=== PATIENT | female | born 1955 | race Caucasian/White ===

== ENCOUNTER 2025-02-12 17:05 | Emergency (ER) | payer MEDICARE, SELFPAY ==
[2025-02-12 17:28] VITALS: BP 179/99; PULSE 79; RESP 18; TEMP 36.8; O2SAT 98; BMI 30.9
--- NOTE | 2025-02-12 17:31 | CRLHL7_ITS ---
For Patients: As a result of the Century Cures Act, medical imaging exams and procedure reports are released immediately into your electronic medical record. You may view this report before your referring provider. If you have questions, please contact your health care provider. INDICATION: Foot Injury TECHNIQUE: Foot radiograph 3 views left COMPARISON: None FINDINGS: Bone: There is an undisplaced transverse intra-articular fracture present at the base of the 5th metatarsal. 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 No significant ankle effusion is seen. Soft tissue: Unremarkable. No radiopaque foreign bodies are seen. IMPRESSION: 1. There is an undisplaced transverse intra-articular fracture present at the base of the 5th metatarsal. Dictated by Gary Munoz MD @ 02/12/2025 6:08:42 PM Dictated by: Gary Munoz MD @ 02/12/2025 18:08:44 (Electronically Signed)
--- NOTE | 2025-02-12 18:23 | ED_ITS ---
HPI - General Adult General Chief complaint: Extremity Pain/Injury, Lower Stated complaint: L foot injury Time Seen by Provider: 02/12/25 18:19 Source: patient Mode of arrival: ambulatory Limitations: no limitations History of Present Illness HPI narrative: 69-year-old female presenting today with foot pain. She states that she was walking around with wedge heels when she lost her footing and her foot turned. She felt immediate pain over the lateral foot. Did not hit her head or lose consciousness. Denies other injury. Related Data Home Medications ?Medication ?Instructions ?Recorded ?Confirmed levothyroxine .ROUTE 02/12/25 losartan .ROUTE 02/12/25 pravastatin 20 mg tablet 20 mg PO QHS 02/12/25 Allergies Allergy/AdvReac Type Severity Reaction Status Date / Time prochlorperazine (From Allergy Verified 02/12/25 17:28 Compazine) trimethobenzamide (From Allergy Verified 02/12/25 17:28 Tigan) Review of Systems Status of ROS: Reports: 6 or more systems reviewed and unremarkable except as noted in History and below Exam Narrative: Exam Narrative: Well-nourished well-developed patient in no acute distress. Alert and oriented. Answers questions appropriately. Mood and affect are appropriate. Thoughts are goal oriented and rational. No tangential or magical thinking noted. P atient speaks in full sentences without needing to catch her breath. HEENT: Normocephalic atraumatic. Pupils are equally round reactive to light. Extraocular muscles are intact. Conjunctivae are moist without any icterus noted. Extremities: Bilateral lower extremities are without edema. Normal DP and PT pulses. Patient has tenderness and ecchymosis over the lateral left foot. Remainder of the foot exam is normal. Skin: Well perfused. Const: Vital Signs, click to edit/add: Vital Signs - 24 hr 02/12/25 17:28 Temperature 98.3 F Pulse Rate [Right Pulse Oximeter] 79 Respiratory Rate 18 Blood Pressure [Ri ght Upper Arm] 179/99 H Pulse Oximetry 98 Oxygen Delivery Me thod Room Air Course Course ED Course: X-ray of the foot, read by me, shows a fracture at the base of the 5th meta tarsal. Vital Signs Vital signs: Initial Vital Signs Temperature 98.3 F 02/12/25 17:28 Temperature Source Temporal Artery Scan 02/12/25 17:28 Pulse Rate 79 02/12/25 17:28 Respiratory Rate 18 02/12/25 17:28 Blood Pressure 179/99 H 02/12/25 17:28 Blood Pressure Mean 125 H 02/12/25 17:28 Blood Pressure Position Sitting 02/12/25 17:28 Pulse Oximetry 98 02/12/25 17:28 Oxygen Delivery Method Room Air 02/12/25 17:28 Vital Signs Temperature 98.3 F 02/12/25 17:28 Pulse Rate 79 02/12/25 17:28 Respiratory Rate 18 02/12/25 17:28 Blood Pressure 179/99 H 02/12/25 17:28 Pulse Oximetry 98 02/12/25 17:28 Oxygen Delivery Method Room Air 02/12/25 17:28 Temperature 98.3 F 02/12/25 17:28 Pulse Rate 79 02/12/25 17:28 Respiratory Rate 18 02/12/25 17:28 Blood Pressure 179/99 H 02/12/25 17:28 Pulse Oximetry 98 02/12/25 17:28 Oxygen Delivery Method Room Air 02/12/25 17:28 Medical Decision Making MDM Narrative Medical decision making narrative: 69-year-old female with a fracture at the base of the 5th metatarsal. Patient watches [employer] 3 times a day and has to be on her feet quite a bit. Therefore we decided to go ahead and put her in a cam boot. She will follow up with primary care Orthopedics this coming week. Has been using ibuprofen for pain in that has been working well. Imaging Data Foot x-ray: Attestation: I have reviewed the pertinent imaging results. Radiologist's impression: TECHNIQUE: Foot radiograph 3 views left COMPARISON: None FINDINGS: Bone: There is an undisplaced transverse intra-articular fracture present at the base of the 5th metatarsal. 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 No significant ankle effusion is seen. Soft tissue: Unremarkable. No radiopaque foreign bodies are seen. IMPRESSION: 1. There is an undisplaced transverse intra-articular fracture present at the base of the 5th metatarsal. Discharge Plan Discharge Clinical Impression: Fracture of base of fifth metatarsal bone Patient Disposition: Home, Self-Care Condition: Stable Additional Instructions: Use boot daily for comfort. Can take off at night to sleep, however, if you get up in the middle of the night he should put the boot back on. You should follow-up with your primary care provider or Orthopedics at the end of this coming week for re-evaluation. Prescriptions: No Action levothyroxine .ROUTE losartan .ROUTE pravastatin 20 mg tablet 20 mg PO QHS Stand Alone Forms: [employer] Info Instructions
--- OUTSIDE RECORDS SUMMARY | 2025-02-12 18:48 | XMS_ITS | Clinical Summary ---
Author Organization [place] Address [address] [place] [address] Care Team Providers Care Hvac Sales Representative Name Role Phone Ana Lilia Atkinson MD Unavailable [phone] Tae Woodson MD Primary Care Provider Tae Woodson MD Unavailable Allergies Active Allergy Reactions Criticality Noted Date Comments Prochlorperazine Other (See Comments) 0 Restless legs Trimethobenzamide 09/13/2019 Medications calcium carbonate 600 MG tablet Take 1 tablet (600 mg) by mouth daily Active Vitamin D, Cholecalciferol, 25 MCG (1000 UT) CAPS Take 1 capsule by mouth daily Active losartan (COZAAR) 25 MG tabletIndication s:Benign essential hypertension TAKE 1 TABLET BY MOUTH EVERY DAY 90 tablet 1 10/27/19 25 Active pravastatin (PRAVACHOL) 20 MG tabletIndication s:Hyperlipidemia LDL goal <100 TAKE 1 TABLET BY MOUTH EVERY DAY 90 tablet 02/07/20 25 Active levothyroxine (SYNTHROID/LEVOT HROID) 125 MCG tabletIndication s:Hypothyroidism , unspecified type TAKE 1/2 TABLET SIX DAYS WEEKLY, 1 TABLET ONE DAY EACH WEEK, FOR A TOTAL WEEKLY DOSE OF 4 TABS/WEEK. 48 tablet 02/07/20 25 Active pravastatin (PRAVACHOL) 20 MG tabletIndication s:Hyperlipidemia LDL goal <100 TAKE 1 TABLET BY MOUTH EVERY DAY 90 tablet 1 08/15/20 24 025 Discontinued levothyroxine (SYNTHROID/LEVOT HROID) 125 MCG tabletIndication s:Hypothyroidism , unspecified type TAKE 1/2 TABLET SIX DAYS WEEKLY, 1 TABLET ONE DAY EACH WEEK, FOR A TOTAL WEEKLY DOSE OF 4 TABS/WEEK. 48 tablet 11/02/19 25 025 Discontinued Active Problems Problem Noted Date Diagnosed Date External hemorrhoids 02/26/2022 Assessment & Plan (02/26/2022 6:39 AM CDT): Patient with painful anal lump about 1 week. This has been bleeding. Pain is reduced bleeding is reduced. Exam shows spontaneously ruptured hemorrhoid. Discussed natural history, care with OTC products Diabetes mellitus, type 2 12/26/2021 Overview (03/29/2024): Well controlled with lifestyle changes, lost 40 pounds since diagnosis. On statin therapy. Pancreas cyst 12/26/2021 Overview (03/29/2024): Following with GI Repeat MRI/MRCP obtained in 03/2024 for monitoring. IMPRESSION: 1. Stable multiple cystic pancreas lesions. Dominant cyst is 2 cm at the pancreas tail. 2. Stable but technically indeterminate multiple nodules in the spleen. Hyperlipidemia LDL goal <100 12/26/2021 Overview (03/31/2024): On pravastatin. Benign essential hypertension 12/26/2021 Overview (02/02/2023): On losartan Hypothyroidism, unspecified type 09/13/2019 Overview (02/02/2023): Follows with endocrinology. History of partial thyroidectomy for goiter many years back. History of large goiter, surgically treated with left hemithyroidectomy. On thyroid hormone replacement since approximately 1992. Encounters Date Type Department Care Team Description 02/05/[address] [facility] [address] [place] [address] Tae Woodson MD Medication Refill 02/04/[address] [address] Tae Woodson MD Medication Refill 12/19/2024 MyC Medical Advice M [facility] [address] [place] [address] Preeti Greer, RONALD from Last 3 Months Immunizations Immunization Administration Dates Next Due Influenza Vaccine 65+ (Fluzone HD) 05/04/2023, Influenza Vaccine >6 months,quad, PF 05/17/2018, 05/06/2016 Pneumococcal 20 valent Conjugate (Prevnar 20) TDAP Vaccine (Adacel) 05/29/2012 TDAP Vaccine (Boostrix) 12/19/2022 Zoster recombinant adjuvanted (Shingrix) 023,06/27/2022 Family History Medical History Relation Comments Cerebrovascular Disease Brother Prostate Cancer Brother Other - See Comments Cousin pancreatic and prostate cancer ALS Father Cerebrovascular Disease Maternal Grandmother Hypertension Mother Stomach Cancer Mother Breast Cancer No family hx of Colon Cancer No family hx of Ovarian Cancer No family hx of Relation Status Comments Brother Alive Cousin (Age 69) pancreatic can cer Father Maternal Grandmother Mother Social History Tobacco Use Types Packs/Day Years Used Date Smoking Tobacco: Never Smokeless Tobacco: Never Tobacco Cessation:Counseling Given: Not Answered Alcohol Use Standard Drinks/Week Comments Never 0 (1 standard drink = 0.6 oz pur e alcohol) Social Connection and Isolat ion Panel [NHANES] Answer Date Recorded Frequency of Communication w ith Friends and Family Not on file 03/29/2024 How often do you get togethe r with friends or relatives? More than three times a week 03/29/2024 Attends Protestant Services Not on file 03/29 Active Member of Clubs or Organizations Not on f ile 03/29/2024 Attends Club or Organization Meetings Not on kervin e 03/29/2024 Marital Status Not on file 03/29/2024 AUDIT-C Answer Date Recorded Q1: How often do you have a drink containing alcohol? Never 12/19/2021 Q2: How many drinks containi ng alcohol do you have on a typical day when you are drinking? Patient does not drink Q3: How often do you have si x or more drinks on one occasion? Never 12/19/2021 PHQ-2 Answer Date Recorded PHQ-2 Score 0 03/29/2024 [facility] [place] of Occupat ional [facility] - Occupational Stress Questionnaire Answer Date Recorded Do you feel stress - tense, restless, nervous, or anxious, or unable to sleep at night because your mind is troubled all the time - these days? Not at all 03/29/2024 Exercise Vital Sign Answer Date Recorde d On average, how many days pe r week do you engage in moderate to strenuous exercise (like a brisk walk)? 1 day Minutes of Exercise per Session Not on file 03/29/2024 Adolescent Education Answer Date Record ed Getting School Help Needed Not on file 05/09 Food Insecurity Answer Date Recorded Within the past 12 months, d id you worry that your food would run out before you got money to buy more? No 03/29/2024 Within the past 12 months, d id the food you bought just not last and you didn t have money to get more? No 03/29/2024 Housing Stability Answer Date Recorded Do you have housing? (Aletheain g is defined as stable permanent housing and does not include staying outside in a car, in a tent, in an abandoned building, in an overnight retirement, or couch-surfing.) Yes 03/29/2024 Are you worried about losing your housing? No 03/29/2024 Financial Resource Strain Answer Date R ecorded Within the past 12 months, h ave you or your family members you live with been unable to get utilities (heat, electricity) when it was really needed? No 03/29/2024 Transportation Needs Answer Date Record ed Within the past 12 months, h as lack of transportation kept you from medical appointments, getting your medicines, non-medical meetings or appointments, work, or from getting things that you need? No 03/29/2024 Interpersonal Safety Answer Date Record ed Do you feel physically and e motionally safe where you currently live? Yes 03/29/2024 Within the past 12 months, h ave you been hit, slapped, kicked or otherwise physically hurt by someone? No 03/29/2024 Within the past 12 months, h ave you been humiliated or emotionally abused in other ways by your partner or ex-partner? 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 Gender Identity Not on file Sexual Orientation Not on file Last Filed Vital Signs Vital Sign Reading Time Taken Comments Blood Pressure 118/74 03/29/2024 7:20 AM CDT Pulse 68 03/29/2024 7:20 AM CDT Temperature 36.5 C (97.7 F) 03/29/2024 7:20 AM CDT Respiratory Rate 15 03/29/2024 7:20 AM CDT Oxygen Saturation 100% 03/29/2024 7:20 AM CDT Inhaled Oxygen Concentration - - Weight 70.3 kg (155 lb) 03/29/2024 7:20 AM CDT Height 157.5 cm (5' 2) 03/29/2024 7:20 AM CDT Body Mass Index 28.35 03/29/2024 7:20 AM CDT Plan of Treatment Health Maintenance Due Date Last Done Comments CT COLONOGRAPHY 1955 FIT 1955 FLEX SIG 1955 sDNA (Cologuard) 1955 ANNUAL REVIEW OF HM ORDERS 12/19/2022 12/19/2021 COVID-19 VACCINE ( season) 2024 PHQ-2 (once per calendar year) 2024 03/29/2024, 02/02/2023, 09/04/2022, Additional history exists A1C 09/29/2024 03/29/2024, 07/17, 02/02/2023, Additional history exists BMP 03/29/2025 03/29/2024, 01/15, 03/31/2022, Additional history exists DIABETIC FOOT EXAM 03/29/2025 03/29/2024, 0 03/29/2024, 02/02/2023, Additional history exists FALL RISK ASSESSMENT 03/29/2025 03/29/2024, 02/02/2023, 12/19/2021, Additional history exists LIPID 03/29/2025 03/29/2024, 12/15, 12/19/2021, Additional history exists MEDICARE ANNUAL WELLNESS VISIT 03/29/2025 03/29/2024, 02/02/2023, 12/19/2021 MICROALBUMIN 03/29/2025 03/29/2024, 12/15, 12/26/2021 TSH W/FREE T4 REFLEX 03/29/2025 03/29/2024, 08/04/2023, 08/04/2023, Additional history exists INFLUENZA VACCINE (Season Ended) 2025 05/04/2023, 07/08/2022, 05/17/2018, Additional history exists EYE EXAM 05/03/2025 05/03/2024, 04/17, 05/02/2023, Additional history exists COLONOSCOPY 07/17/2025 07/17/2015 COLORECTAL CANCER SCREENING 07/17/2025 MAMMO SCREENING 01/21/2026 01/22/2024, 12/16, 08/09/2018, Additional history exists ADVANCE CARE PLANNING 03/29/2029 03/29/2024 , 02/02/2023, 09/04/2022, Additional history exists RSV VACCINE (1 - 1-dose 75+ series) 2030 DTAP/TDAP/TD VACCINE (3 - Td or Tdap) 12/19/2032 12/19/2022, 05/29/2012 DEXA 02/24/2037 02/24/2022 HEPATITIS C SCREENING Completed 07/12/2018, 018 ZOSTER VACCINE Completed 10/17/2022, 06/27/2022 PNEUMOCOCCAL VACCINE 50+ YEARS Completed 12/19/2022 HPV VACCINE Aged Out No longer eligi ble based on patient's age to complete this topic MENINGITIS VACCINE Aged Out No longer eligible based on patient's age to complete this topic Procedures Procedure Name Priority Date/Time Associated Diagnosis Comments EYE EXAM - HIM SCAN 05/03/2024 1 2:00 AM CDT ALBUMIN RANDOM URINE QUANTITATIVE Routine 03/29/2024 8:02 AM CDT Type 2 diabetes mellitus without complication, without long-term current use of insulin (H) TSH WITH FREE T4 REFLEX Routine 03/29/2024 7:59 AM CDT Hypothyroidism, unspecified type LIPID REFLEX TO DIRECT LDL PANEL Routine 03/29/2024 7:59 AM CDT Type 2 diabetes mellitus without complication, without long-term current use of insulin (H) BASIC METABOLIC PANEL Routine 03/29/2024 7:59 AM CDT Benign essential hypertension HEMOGLOBIN A1C Routine 03/29/2024 7:59 AM CDT Type 2 diabetes mellitus without complication, without long-term current use of insulin (H) MA SCREENING BILATERAL W/ MATIAS Routine 01/22/2024 7:51 AM CDT Visit for screening mammogram DX BONE DENSITY Routine 02/24/2022 1:59 PM CDT Asymptomatic postmenopausal status HEPATITIS C ([facility] EXTERNAL RESULT) Routine 07/09/2018 COLONOSCOPY - HIM SCAN Routine 07/17/2015 from Last 3 Months or Most Recently Relevant to Health Maintenance Results * Eye Exam - HIM Scan (05/03/2024 12:00 AM CDT) 05/03/2024 us Provider Outside OTHER Final Result * Albumin Random Urine Quantitative with Creat Ratio (03/29/2024 8:02 AM CDT) Creatinine Urine mg/dL 110.0 mg/dL 03/29/2024 2:13 PM CDT [facility] Comment:The reference ranges have not been established in urine creatinine. The results should be integrated into the clinical context for interpretation. Albumin Urine mg/L <12.0 mg/L 2023 2:13 PM CDT [facility] Comment:The reference ranges have not been established in urine albumin. The results should be integrated into the clinical context for interpretation. Albumin Urine mg/g Cr 03/29/2024 2:13 PM CDT [facility] Comment: Unable to calculate, urine albumin and/or urine creatinine is outside detectable limits. Microalbuminuria is defined as an albumin:creatinine ratio of 17 to 299 for males and 25 to 299 for females. A ratio of albumin:creatinine of 300 or higher is indicative of overt proteinuria. Due to biologic variability, positive results should be confirmed by a second, first-morning random or 24-hour timed urine specimen. If there is discrepancy, a third specimen is recommended. When 2 out of 3 results are in the microalbuminuria range, this is evidence for incipient nephropathy and warrants increased efforts at glucose control, blood pressure control, and institution of therapy with an ieypcwlkjzm-kpxoimmcym-vltqag (STARLA) inhibitor (if the patient can tolerate it). Urine URINE SPECIMEN / Unknown Non-blood Collection / Unknown 03/29/2024 8:02 AM CDT 03/29/2024 8:02 AM CDT Tae Woodson MD LAB - URINE ORDERABLES Final Res ult Performing Organization Address City/[facility]/ZIP Co de Phone Number [facility] [facility] [address] [facility], [address] * TSH with free T4 reflex (03/29/2024 7:59 AM CDT) TSH 2.22 0.30 - 4.20 uIU/mL 03/29/2024 2:18 PM CDT [facility] Blood BLOOD SPECIMEN / Unknown Venipuncture / Unknown 03/29/2024 7:59 AM CDT 03/29/2024 7:59 AM CDT Tae Woodson MD LAB - BLOOD ORDERABLES Final Res ult Performing Organization Address City/[facility] de Phone Number [facility] [address] [facility], [address] [id number] * Lipid panel reflex to direct LDL Fasting (03/29/2024 7:59 AM CDT) Cholesterol 172 <200 mg/dL 03/29/2024 2:18 PM CDT [facility] Triglycerides 68 <150 mg/dL 03/29/2024 2:18 PM CDT [facility] Direct Measure HDL 61 >=50 mg/dL 2023 2:18 PM CDT [facility] LDL Cholesterol Calculated 97 <=100 mg/dL 03/29/2024 2:18 PM CDT [facility] Non HDL Cholesterol 111 <130 mg/dL 03/29/2024 2:18 PM CDT [facility] Patient Fasting > 8hrs? Yes 03/29/2024 2:18 PM CDT [facility] Blood BLOOD SPECIMEN / Unknown Venipuncture / Unknown 03/29/2024 7:59 AM CDT 03/29/2024 7:59 AM CDT Narrative [facility] - 03/29/2024 2:18 PM CDT Cholesterol Desirable: <200 mg/dL Triglycerides Normal: Less than 150 mg/dL Borderline High: 150-199 mg/dL High: 200-499 mg/dL Very High: Greater than or equal to 500 mg/dL Direct Measure HDL Female: Greater than or equal to 50 mg/dL Male: Greater than or equal to 40 mg/dL LDL Cholesterol Desirable: <100mg/dL Above Desirable: 100-129 mg/dL Borderline High: 130-159 mg/dL High: 160-189 mg/dL Very High: >= 190 mg/dL Non HDL Cholesterol Desirable: 130 mg/dL Above Desirable: 130-159 mg/dL Borderline High: 160-189 mg/dL High: 190-219 mg/dL Very High: Greater than or equal to 220 mg/dL us Tae Woodson MD LAB - BLOOD ORDERABLES Final Res ult [facility] [address] [facility], [address] [place] [address] * (ABNORMAL) Hemoglobin A1c (03/29/2024 7:59 AM CDT) Hemoglobin A1C 6.2(H) 0.0 - 5.6 % 03/29/2024 8:11 AM CDT LABORATORY Comment: Normal <5.7% Prediabetes 5.7-6.4% Diabetes 6.5% or higher Note: Adopted from ADA consensus guidelines. Blood BLOOD SPECIMEN / Unknown Venipuncture / Unknown 03/29/2024 7:59 AM CDT 03/29/2024 7:59 AM CDT us Tae Woodson MD LAB - BLOOD ORDERABLES Final Res ult LABORATORY [facility] [place] [facility] [address] [facility] (no room number, 1st floor of clinic) [place] [address], [facility] * (ABNORMAL) BASIC METABOLIC PANEL (03/29/2024 7:59 AM CDT) Sodium 141 135 - 145 mmol/L 03/29/2024 2:18 PM CDT [facility] Potassium 4.7 3.4 - 5.3 mmol/L 03/29/2024 2:18 PM CDT [facility] Chloride 106 98 - 107 mmol/L 03/29/2024 2:18 PM CDT [facility] Carbon Dioxide (CO2) 27 22 - 29 mmol/L 03/29/2024 2:18 PM CDT [facility] Anion Gap 8 7 - 15 mmol/L 03/29/2024 2:18 PM CDT [facility] Urea Nitrogen 18.4 8.0 - 23.0 mg/dL 03/29/2024 2:18 PM CDT [facility] Creatinine 0.81 0.51 - 0.95 mg/dL 03/29/2024 2:18 PM CDT [facility] GFR Estimate 79 >60 mL/min/1.7 3m2 03/29/2024 2:18 PM CDT [facility] Comment:eGFR calculated usin g 2020 CKD-EPI equation. Calcium 9.4 8.8 - 10.4 mg/dL 03/29/2024 2:18 PM CDT [facility] Comment:Reference intervals for this test were updated on 03/01/2024 to reflect our healthy population more accurately. There may be differences in the flagging of prior results with similar values performed with this method. Those prior results can be interpreted in the context of the updated reference intervals. Glucose 129(H) 70 - 99 mg/dL 03/29/2024 2:18 PM CDT [facility] Patient Fasting > 8hrs? Yes 03/29/2024 2:18 PM CDT [facility] Blood BLOOD SPECIMEN / Unknown Venipuncture / Unknown 03/29/2024 7:59 AM CDT 03/29/2024 7:59 AM CDT Tae Woodson MD LAB - BLOOD ORDERABLES Final Res ult [facility]ORY [facility] [facility] [address] [facility], [address] [place] [phone] * MA Screening Bilateral w/ Matias (01/22/2024 7:51 AM CDT) Anatomical Region Laterality Modality Breast Bilateral Mammography Impressions 01/22/2024 10:50 AM CDT IMPRESSION: ACR BI-RADS Category 1: Negative BREAST CANCER SCREENING RECOMMENDATION: Routine yearly mammography beginning at age 40 or as discussed with your provider. The results and recommendations of this examination will be communicated to the patient. Sunil Hernandez Narrative 01/22/2024 10:50 AM CDT BILATERAL FULL FIELD DIGITAL SCREENING MAMMOGRAM WITH TOMOSYNTHESIS Performed on: 01/22/24 Compared to: 01/09/2022, 08/09/2018, 06/25/2015, and 06/20/2014 Technique: This study was evaluated with the assistance of Computer-Aided Detection. Breast Tomosynthesis was used in interpretation. Findings: The breasts have scattered areas of fibroglandular density. There is no radiographic evidence of malignancy. Tae Woodson MD IMG MAMMOGRAPHY ORDERABLES Final Result * DX Hip/Pelvis/Spine (02/24/2022 1:59 PM CDT) Anatomical Region Laterality Modality Dexa Bone Mineral Den sity Narrative 02/26/2022 2:34 PM CDT BONE DENSITOMETRY [address] [address] 02/24/2022 [facility] CHART: [id number] : 1955 AGE: [age] year old SEX: female REFERRING PROVIDER: Melonie York MD PROCEDURE: Bone density scanning was performed using DXA technology of the lumbar spine and hip. Scanning was performed on a eHarmony scanner. Reporting is completed in the form of a T-score. The T-score represents the standard deviation from peak bone mass based on a young healthy adult. REFERENCE T-SCORES: Normal -1.0 and greater Osteopenia Between -1.0 and -2.5 Osteoporosis -2.5 and less RISK FACTORS: Post-menopausal CURRENT TREATMENT: None listed FINDINGS: Lumbar Spine (L1-L4) T-score: 0.4, degenerative changes present Left Femoral Neck T-score: -1.0 Right Femoral Neck T-score: -1.0 Lumbar (L1-L4) BMD: 1.241 Total Hip Mean BMD: 0.899 IMPRESSION Normal bone mineral density., Degenerative changes of the lumbar spine which may falsely elevate results. Patient had a study performed previously, however the scans are not available to compare to the current study. Recommendations include ensuring adequate Calcium and Vitamin D. The current NOF Guidelines recommend treatment for patients with prior hip or vertebral fracture, T-score -2.5 or below, or 10 year risk of any major osteoporotic fracture 20% or greater, or 10 year risk of hip fracture 3% or greater as calculated using the FRAX calculator (www.shef.ac.uk/FRAX or you can google FRAX). This patient's risks based on available information, with the use of FRAX, are 8.1 % for major osteoporotic fracture and 0.6 % for hip fracture. Based on these guidelines, treatment (in addition to calcium and vitamin D) is not recommended for this patient, after ruling out other causes of osteoporosis. This is meant as an aid to clinical decision making; one must still use clinical judgement. Follow up can be considered in 5 years. Alpa Collins M.D. Electronically signed us Melonie York MD IMG DEXA ORDERABLE S Final Result * Hep C - HIM (07/09/2018) Hep C HIM See Scanned Document [facility] 07/09/2018 Narrative [facility] - 07/09/2018 LAB RESULT [facility] us Provider Outside LAB - HIM EXTERNAL RESULT Final Result [facility] [address] [facility] [place] [address], [facility] [phone] * Colonoscopy - HIM Scan (07/17/2015) Narrative Sydnie Wolf - 07/17/2015 Nirmala Bustamante MA Abstract Quality Initiatives 15 hours ago (4:01 PM) Please abstract the following data from this visit with this patient into the appropriate field in Epic: Tests that can be patient reported without a hard copy: Colonoscopy done on this date: 07/17/15 (approximately), by this group: Maribel, results were normal. us Patient Reported PROCEDURES Final Result from Last 3 Months or Most Recently Relevant to Health Maintenance Insurance BCBS MEDICARE ADVANTAGE Care Teams Hvac Sales Representative Relationship Specialty [place] [address] [address] [place] [address] PCP - General Family Practice 02/02/23 Ana Lilia Atkinson MD [address] [facility] [address] [place] [address] Hospitalist Endocrinology, Diabetes, and Metabolism 08/05/21 [place] [address] [address] [place] [address] Assigned PCP 02/07/23
--- OUTSIDE RECORDS SUMMARY | 2025-02-12 18:48 | XMS_ITS | Encounter Summary ---
Author Organization [place] Address [facility] 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 Role Phone Ana Lilia Atkinson MD Unavailable [phone] Tae Woodson MD Primary Care Provider [phone] Tae Woodson MD Unavailable Reason for Visit * Reason Comments Medication Refill Encounter Details Date Type Department Care Team (Late st Contact Info) Description 02/04/[address] [address] [place] [address] [place] [address] Medication Refill Social History Tobacco Use Types Packs/Day Years Used Date Smoking Tobacco: Never Smokeless Tobacco: Never Alcohol Use Standard Drinks/Week Comments Never 0 (1 standard drink = 0.6 oz pur e alcohol) Social Connection and Isolat ion Panel [NHANES] Answer Date Recorded Frequency of Communication w ith Friends and Family Not on file 03/29/2024 How often do you get togethe r with friends or relatives? More than three times a week 03/29/2024 Attends Taoist Services Not on file 03/29 Active Member [...] Answer Date Recorded PHQ-2 Score 0 03/29/2024 [facility] - Occupational Stress Questionnaire Answer Date Recorded [...] Answer Date Recorded Do you have housing? 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 Gender Identity Not on file Sexual Orientation Not on file documented as of this encounter Plan of Treatment Not on file documented as of this encounter Visit Diagnoses Diagnosis Hyperlipidemia LDL goal <100 Other and unspecified hyperlipidemia documented in this encounter Care Teams Body Shop Mechanic Relationship Specialty [place] [address] [address] [place] [address] PCP - General Family Practice 02/02/23 Ana Lilia Atkinson MD [address] [facility] [address] [place] [address] Hospitalist Endocrinology, Diabetes, and Metabolism 08/05/21 [place] [address] [address] [address] Assigned PCP 02/07/23 documented as of this encounter
--- OUTSIDE RECORDS SUMMARY | 2025-02-12 18:48 | XMS_ITS | Encounter Summary ---
Author Organization [facility] Address [address] [place] [address]. [place] [address] Care Team Providers Care Nurse'S Aides Teacher Name Role Phone Ana Lilia Atkinson MD Unavailable [phone] Ana Lilia Atkinson MD Unavailable [phone] Tae Woodson MD Primary Care Provider [phone] Tae Woodson MD Unavailable Encounter Details Date Type Department Care Team (Late st Contact Info) Description 09/01/2023 [facility] Medical Advice [address] [address] Teodora Martin RN Social History Tobacco Use Types Packs/Day Years Used Date Smoking Tobacco: Never Smokeless Tobacco: Never Alcohol Use Standard Drinks/Week Comments Never 0 (1 standard drink = 0.6 oz pur e alcohol) Social Connection and Isolat ion Panel [NHANES] Answer Date Recorded In a typical week, how many times do you talk on the phone with family, friends, or neighbors? More than three times a week 12/19/2021 How often do you get togethe r with friends or relatives? More than three times a week 12/19/2021 How often do you attend chur ch or worship services? More than 4 times per year 12/19/2021 Do you belong to any clubs o r organizations such as christianity groups, unions, fraternal or athletic groups, or school groups? Yes 12/19/2021 Attends Club or Organization Meetings Not on kervin e 12/19/2021 Are you , , di vorced, , never , or living with a partner? 12/19/2021 AUDIT-C Answer Date Recorded Q1: How often do you have a drink containing alcohol? Never 12/19/2021 Q2: How many drinks containi ng alcohol do you have on a typical day when you are drinking? Patient does not drink Q3: How often do you have si x or more drinks on one occasion? Never 12/19/2021 Overall Financial Resource Strain (CARDIA) Answe r Date Recorded How hard is it for you to pa y for the very basics like food, housing, medical care, and heating? Not hard at all 12/19/2021 PHQ-2 Answer Date Recorded PHQ-2 Score 0 02/02/2023 [facility] of Occupat ional Health - Occupational Stress Questionnaire Answer Date Recorded Do you feel stress - tense, restless, nervous, or anxious, or unable to sleep at night because your mind is troubled all the time - these days? Not at all 12/19/2021 Exercise Vital Sign Answer Date Recorde d On average, how many days pe r week do you engage in moderate to strenuous exercise (like a brisk walk)? 0 days 12/19/2021 On average, how many minutes do you engage in exercise at this level? 0 min 12/19/2021 Hunger Vital Sign Answer Date Recorded Within the past 12 months, y ou worried that your food would run out before you got the money to buy more. Never true 12/20/19 22 Within the past 12 months, t he food you bought just didn't last and you didn't have money to get more. Never true 12/19/2021 PRAPARE - Transportation Answer Date Re corded In the past 12 months, has l ack of transportation kept you from medical appointments or from getting medications? No 12/2021 In the past 12 months, has l ack of transportation kept you from meetings, work, or from getting things needed for daily living? No 12/19/2021 Housing Stability Vital Sign Answer Tito e Recorded In the last 12 months, was t here a time when you were not able to pay the mortgage or rent on time? No 12/19/2021 In the last 12 months, how many places have you lived? 1 12/19/2021 In the last 12 months, was t here a time when you did not have a steady place to sleep or slept in a halfway (including now)? 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 Gender Identity Not on file Sexual Orientation Not on file documented as of this encounter Plan of Treatment Not on file documented as of this encounter Visit Diagnoses Not on filedocumented in this encounter Care Teams Nurse'S Aides Teacher Relationship Specialty [place] [address] [address] [place] [address] PCP - General Family Practice 02/02/23 Ana Lilia Atkinson MD [address] [facility] [address] [place], [place] [address] Hospitalist Endocrinology, Diabetes, and Metabolism 08/05/21 Ana Lilia Atkinson MD [address] [place], [place] [address] Assigned Endocrinology Provider 11/24/21 08/07/24 [place] [address] [address] [place] [address] Assigned PCP 02/07/23 documented as of this encounter
--- OUTSIDE RECORDS SUMMARY | 2025-02-12 18:48 | XMS_ITS | Encounter Summary ---
Author Organization [facility] Address [address] [place] [address]. [place] [address] Care Team Providers Care Dismantler Name Role Phone Ana Lilia Atkinson MD Unavailable [phone] Tae Woodson MD Primary Care Provider [phone] Tae Woodson MD Unavailable Encounter Details Date Type Department Care Team (Late st Contact Info) Description 12/19/2024 [facility] Medical Advice [facility] [address] [address] Preeti Greer, RONALD Social History Tobacco Use Types Packs/Day Years [...] than three times a week 03/29/2024 Attends Confucianist Services Not on file 03/29 Active Member [...] Answer Date Recorded PHQ-2 Score 0 03/29/2024 [facility] [place] of Occupat ional Health - Occupational Stress [...] in an abandoned building, in an overnight care home, or couch-surfing.) Yes 03/29/2024 Are you worried [...] on file 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 Gender Identity Not on file Sexual Orientation Not on file documented as of this encounter Plan of Treatment Not on file documented as of this encounter Visit Diagnoses Not on filedocumented in this encounter Care Teams Dismantler Relationship Specialty [place] [address] [address] [place] [address] PCP - General Family Practice 02/02/23 Ana Lilia Atkinson MD [address] [facility] [address] [place], [place] [id number] Hospitalist Endocrinology, Diabetes, and Metabolism 08/05/21 [place] [address] [address] [place] [address] Assigned PCP 02/07/23 documented as of this encounter
--- OUTSIDE RECORDS SUMMARY | 2025-02-12 18:48 | XMS_ITS | Encounter Summary ---
Author Organization [facility] Address [address] [facility] [place] [address] Care Team Providers Care Radio Recorder Name Role Phone Melonie York MD Primary Care Prov ider Ana Lilia Atkinson MD Unavailable [phone] Ana Lilia Atkinson MD Unavailable [phone] Melonie York MD Unavailable + Jerry Akhtar MD Unavailable [phone] Tae Woodson MD Primary Care Provider [phone] Tae Woodson MD Unavailable Encounter Details Date Type Department Care Team (Late st Contact Info) Description 08/14/2022 [facility] Medical Advice [facility] [address] [place] [address] Preeti Greer, RN Social History Tobacco Use Types Packs/Day [...] week 12/19/2021 How often do you attend [facility] or catholic services? More than 4 times per year 12/19/2021 Do you belong to any clubs o r organizations such as yazidi groups, unions, fraternal or athletic groups, or [...] PHQ-2 Answer Date Recorded PHQ-2 Score 0 07/08/2022 [facility] of Occupat ional [facility] - Occupational Stress Questionnaire Answer Date Recorded [...] money to buy more. Never true 12/20/19 Within the past 12 months, t he [...] place to sleep or slept in a fpc (including now)? 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 No / Unsure 08/07/2022 3:33 PM AGRICULTURAL RESEARCH DIRECTOR documented as of this encounter Plan of Treatment Not on file documented as of this encounter Visit Diagnoses Not on filedocumented in this encounter Care Teams Radio Recorder Relationship Specialty Start Date End Date Melonie York MD PCP - General Family Practice 09/12/19 02/01/23 [place] [address] [place] [address] PCP - General Family Practice 02/02/23 Ana Lilia Atkinson MD [address] [facility] 200 [place], [place] [address] Hospitalist Endocrinology, Diabetes, and Metabolism 08/05/21 Ana Lilia Atkinson MD [address] [facility] 200 [place] [address] Assigned Endocrinology Provider 11/24/21 08/07/24 Melonie York MD Assigned PCP 12/29/21 01/09/23 [place] [address] [place] [address] Assigned PCP 01/10/23 02/06/23 [place] [address] [place] [address] Assigned PCP 02/07/23 documented as of this encounter
--- OUTSIDE RECORDS SUMMARY | 2025-02-12 18:48 | XMS_ITS | Encounter Summary ---
Author Organization [place] Address [facility] [place] [address] Care Team Providers Care Rivet Sorter Name Role Phone Ana Lilia Atkinson MD Unavailable [phone] Tae Woodson MD Primary Care Provider [phone] Tae Woodson MD Unavailable Reason for Visit * Reason Comments Medication Refill Encounter Details Date Type Department Care Team (Late st Contact Info) Description 02/05/2025 Refill [facility] [address] [facility] [address] [place] [address] [place] [address] [place] [address] Medication Refill Social History Tobacco [...] Answer Date Recorded PHQ-2 Score 0 03/29/2024 [facility] of Occupat ional Health - Occupational Stress [...] Date Recorded Do you have housing? 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 Gender Identity Not on file Sexual Orientation Not on file documented as of this encounter Plan of Treatment Not on file documented as of this encounter Visit Diagnoses Diagnosis Hypothyroidism, unspecified type documented in this encounter Care Teams Rivet Sorter Relationship Specialty [place] [address] [address] [place] [address] PCP - General Family Practice 02/02/23 Ana Lilia Atkinson MD [address] [facility] [address] [place] [address] Hospitalist Endocrinology, Diabetes, and Metabolism 08/05/21 [place] [address] [address] [place] [address] Assigned PCP 02/07/23 documented as of this encounter
--- OUTSIDE RECORDS SUMMARY | 2025-02-12 18:49 | XMS_ITS | Encounter Summary ---
Author Organization [place] Address [address] [facility] [place] [address] Care Team Providers Care Poultry Buyer Name Role Phone Melonie York MD Primary Care Prov ider Ana Lilia Atkinson MD Unavailable [phone] Ana Lilia Atkinson MD Unavailable [phone] Jerry Akhtar MD Unavailable [phone] Tae Woodson MD Primary Care Provider [phone] Tae Woodson MD Unavailable Encounter Details Date Type Department Care Team (Late st Contact Info) Description 01/16/2023 [place] Medical Advice [facility] [address] [place] [address] Preeti Greer, RN Social History [...] 12/19/2021 How often do you attend chur or confucianist services? More than 4 times per year 12/19/2021 Do you belong to any clubs o r organizations such as religious groups, unions, fraternal or athletic groups, or [...] PHQ-2 Answer Date Recorded PHQ-2 Score 0 09/04/2022 [facility] of Occupat ional [facility] - Occupational Stress Questionnaire Answer Date [...] place to sleep or slept in a custodial (including now)? 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 No / Unsure 01/07/2023 12:52 PM CDT documented as of this encounter Plan of Treatment Not on file documented as of this encounter Visit Diagnoses Not on filedocumented in this encounter Care Teams Poultry Buyer Relationship Specialty Start Date End Date Melonie York MD PCP - General Family Practice 09/12/19 02/01/23 [place] [address] [facility] [place] [address] PCP - General Family Practice 02/02/23 Ana Lilia Atkinson MD [address] [address] Hospitalist Endocrinology, Diabetes, and Metabolism 08/05/21 Ana Lilia Atkinson MD [address] [address] Assigned Endocrinology Provider 11/24/21 08/07/24 [place] [address] [place] [address] Assigned PCP 01/10/23 02/06/23 [place] [address] [address] [place] [address] Assigned PCP 02/07/23 documented as of this encounter
--- OUTSIDE RECORDS SUMMARY | 2025-02-12 18:49 | XMS_ITS | Encounter Summary ---
Author Organization [place] Address [address] [facility] [place] [address] Care Team Providers Care Plate Worker Name Role Phone Melonie York MD Primary Care Prov ider Ana Lilia Atkinson MD Unavailable [phone] Ana Lilia Atkinson MD Unavailable [phone] Melonie York MD Unavailable + Jerry Akhtar MD Unavailable [phone] Tae Woodson MD Primary Care Provider [phone] Tae Woodson MD Unavailable Encounter Details Date Type Department Care Team (Late st Contact Info) Description 09/17/2022 [facility] Medical Advice [facility] [address] [place] [address] Preeti Greer, RN Social History [...] week 12/19/2021 How often do you attend [facility] or shinto services? More than 4 times per year 12/19/2021 Do you belong to any clubs o r organizations such as samaritan groups, unions, fraternal or athletic groups, or [...] Answer Date Recorded PHQ-2 Score 0 09/04/2022 [facility] of Occupat ional Health - Occupational Stress [...] place to sleep or slept in a care home (including now)? 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 No / Unsure 09/15/2022 6:15 AM BODY AND FENDER MECHANIC documented as of this encounter Plan of Treatment Not on file documented as of this encounter Visit Diagnoses Not on filedocumented in this encounter Care Teams Plate Worker Relationship Specialty Start Date End Date Melonie York MD PCP - General Family Practice 09/12/19 02/01/23 [place] [address] [place] [address] PCP - General Family Practice 02/02/23 Ana Lilia Atkinson MD [address] [facility] [address] [place], [place] [address] Hospitalist Endocrinology, Diabetes, and Metabolism 08/05/21 Ana Lilia Atkinson MD [address] [facility] [address] [place] [address] Assigned Endocrinology Provider 11/24/21 08/07/24 Melonie York MD Assigned PCP 12/29/21 01/09/23 [place] [address] [place] [address] Assigned PCP 01/10/23 02/06/23 [place] [address] [place] [address] Assigned PCP 02/07/23 documented as of this encounter
== END 2025-02-12 18:45 | disposition home or self-care (01) ==
PROVIDERS: Emergency Provider Family Medicine; PCP Student in an Organized Health Care Education/Training Program
DX: S92.355A Nondisplaced fracture of fifth metatarsal bone, left foot, initial encounter for closed fracture (principal)
CPT/HCPCS: 73630; 99283; 99284